=== PATIENT | male | born 1970 | race African-American/Black ===

== ENCOUNTER 2020-09-09 11:33 | Emergency (ER) | payer MEDICAID, SELFPAY ==
[2020-09-09 13:38] VITALS: BP 140/76; PULSE 80; RESP 18; TEMP 36.8; O2SAT 99; BMI 27.3
[2020-09-09 15:27] LABS: COVID-19 Test Positive (Negative)
--- NOTE | 2020-09-09 17:50 | ED.GENADULT ---
HPI - General Adult General Chief complaint: General Medical Stated complaint: can smell anything Time Seen by Provider: 09/09/20 14:29 History of Present Illness HPI narrative: Patient complains of loss of sense of smell and decreased sense of taste for 2 days, he has no other symptoms no fever no chills no cough no shortness of breath Related Data Allergies Allergy/AdvReac Type Severity Reaction Status Date / Time No Known Allergies Allergy Verified 09/09/20 13:38 Review of Systems Review of Systems: Loss of taste and smell Negatives are no fever no chills no dizziness or weakness no cough no chest pain no sore throat no runny nose no abdominal pain no nausea no vomiting no diarrhea no dysuria no rash no numbness or weakness PMFSH Past Medical History Source: nursing notes reviewed Medical History (Updated 09/09/20 @ 16:04 by KATIE Lopez) Patient denies medical problems Social History Social History Advance Directives: No Advance Directives Information Provided: No Physical Exam Vital Signs: Vital Signs: Last Vital Signs Temp 98.3 F 09/09/20 13:38 Pulse 80 09/09/20 13:38 Resp 18 09/09/20 13:38 BP 140/76 H 09/09/20 13:38 Pulse Ox 99 09/09/20 13:38 Body Mass Index 27.3 General appearance is no acute distress, A&O x3, cooperative and relax the neck is supple chest is clear to auscultation bilaterally with full symmetric equal breath sounds The heart rate and rhythm regular no murmur Abdomen soft nontender Extremities for range of motion x4 Neuro no focal deficit Course Course Course Narrative: COVID test was positive and patient is informed and given a work note Medical Decision Making Lab Data Labs: Lab Results 09/09/20 Range/Units 14:57 COVID-19 ([facility]) Positive A (Negative) COVID-19 Clin Com See Note Discharge Plan Discharge Clinical Impression: COVID-19 Patient Disposition: Home, Self-Care Additional Instructions: Your COVID test was positive, this is very contagious so you are off work for 10 days and then recommend get a repeat test after 10 days and if repeat test is negative and you have no symptoms you are okay to return to work Stand Alone Forms: Work/School Release Interventions: ED Discharge Assessment Last Done: 09/09/20 16:07 Discharge Date/Time: 09/09/20 16:08
== END 2020-09-09 16:08 | disposition home or self-care (01) ==
PROVIDERS: Physician Assistant Medical; Emergency Provider Emergency Medicine
DX: U07.1 COVID-19 (principal)
CPT/HCPCS: 36415; 87635; 99283

== ENCOUNTER 2020-09-23 12:47 | Outpatient (REF) | payer OTHER, SELFPAY | END 2020-09-23 12:48 | disposition home or self-care (01) | LOC: HO.LAB 12:47 | PROVIDERS: Visit Provider Internal Medicine | DX: Z20.822 Contact with and (suspected) exposure to COVID-19 (principal) | CPT/HCPCS: 36415; C9803; U0003; U0005 ==